=== PATIENT | female | born 1960 | race Caucasian/White ===

== ENCOUNTER 2023-11-25 23:09 | Emergency (ER) | payer OTHER, SELFPAY ==
[2023-11-25 23:16] VITALS: BP 136/82; PULSE 96; RESP 16; TEMP 36.6; O2SAT 99; BMI 25.8
--- NOTE | 2023-11-25 23:21 | ED.CHESTPAIN ---
HPI - Chest Pain General Time Seen by Provider: 23:21 Date Seen: 11/25/23 Chief Complaint: Hypertension Stated Complaint: high bp, irregular heartbeat Time Seen by Provider: 11/25/23 23:21 Source: patient, RN notes reviewed and old records reviewed Mode of arrival: ambulatory Limitations: no limitations History of Present Illness HPI narrative: Shelley is a very pleasant 63-year-old female with past history of intermittent palpitations, Holter monitor use who comes to the emergency room for evaluation regarding sustained rapid heart rate and elevated for a pressure of 160s over 1 teens. Lower states that she has had intermittent issues of feeling like her heart was out of rhythm since childhood. She notes that these episodes usually last 30 seconds and then they would go away. She had found that walking or sitting up in bed usually helped. She notes that often times when she lays on her left side it will set off the unusual rhythm but if she starts on the right side she feels sleepy and calmer she can then turned her left side. She notes the drinking water also seems to help. Tonight she notes that she had a rapid heart rate and elevated blood pressure lasting for approximately [address] minutes[address] And route to the hospital the seems to have resolved and she is feeling better here in the emergency room. She notes that tonight was different as it lasted for quite a bit longer. Shelley denies being ill recently. She has not had cough cold congestion. 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 She has used to carrying 50 lb bags of feed without difficulty. She is also an active golfer and walks. She does not smoke. Tonight she did have 3 alcoholic beverages as well as some very spicy food and desert. She states that she had apple pie for dessert and that the sugar make sleeping difficulty. She did take an Advil tonight. She is noted to eat very healthy with lots of vegetables especially magnesium containing vegetables. She occasionally takes multivitamin. Lower denies chest pain shortness of breath at this time. She has no nausea vomiting. She has not noticed any lower extremity edema. Blood pressure is 136 systolic upon presentation with a pulse of 96. Related Data Home Medications ?Medication ?Instructions ?Recorded ?Confirmed No Known Home Medications 11/25/23 11/25/23 Allergies Allergy/AdvReac Type Severity Reaction Status Date / Time Penicillins Allergy Unknown Verified 11/25/23 23:18 Review of Systems Status of ROS Reports: 10 or more systems reviewed and unremarkable except as noted in History and below Const Denies: fever, chills or fatigue Eyes Denies: change in vision ENMT Denies: nasal congestion Cardio Reports: palpitations and lightheadedness (Occasionally with dehydration); Denies: chest pain, swelling of feet/ankles or shortness of breath with exertion Resp Denies: shortness of breath or cough GI Denies: abdominal pain, nausea or vomiting Endo Denies: fatigue Exam Narrative Exam Narrative: Alert and oriented. Nontoxic in appearance. Very pleasant well-spoken woman in no acute distress. External ears eyes nose clear. Mentation and speech normal. Face symmetrical. Heart with regular rate and rhythm. I do not auscultate murmur or rub. Lungs are clear bilaterally. Lower extremities without edema. No calf tenderness. Moving all extremities. Const Vital Signs, click to edit/add: Vital Signs - 24 hr 11/25/23 23:16 11/25/23 23:52 Temperature 97.8 F Pulse Rate [Left Pulse Oximeter] 96 Respiratory Rate 16 Blood Pressure [Right Upper Arm] 136/82 147/84 H Pulse Oximetry 99 Oxygen Delivery Method Room Air Documenting provider has reviewed patient's vital signs: yes Course Course ED Course: At this time differential diagnosis is AFib, a flutter, SVT, other unusual rhythm, sinus tachycardia. I am wondering if maybe the 3 alcoholic drinks tonight contributed to robin's 20 minute episode of a rapid heart rate. I did state to Shelley that the elevated blood pressure does not concern me as much. I am concerned about the arrhythmia tonight. Leroy has been on Holter monitors in the past and they have never caught any thing while recording. EKG has been ordered. I would also like Shelley to drink some water. Vital Signs Vital signs: Initial Vital Signs Temperature 97.8 F 11/25/23 23:16 Temperature Source Temporal Artery Scan 11/25/23 23:16 Pulse Rate 96 11/25/23 23:16 Pulse Rhythm Regular 11/25/23 23:16 Respiratory Rate 16 11/25/23 23:16 Blood Pressure 136/82 11/25/23 23:16 Blood Pressure Mean 100 11/25/23 23:16 Blood Pressure Position Sitting 11/25/23 23:16 Pulse Oximetry 99 11/25/23 23:16 Oxygen Delivery Method Room Air 11/25/23 23:16 Vital Signs Temperature 97.8 F 11/25/23 23:16 Pulse Rate 96 11/25/23 23:16 Respiratory Rate 16 11/25/23 23:16 Blood Pressure 136/82 11/25/23 23:16 Pulse Oximetry 99 11/25/23 23:16 Oxygen Delivery Method Room Air 11/25/23 23:16 Temperature 97.8 F 11/25/23 23:16 Pulse Rate 96 11/25/23 23:16 Respiratory Rate 16 11/25/23 23:16 Blood Pressure 147/84 H 11/25/23 23:52 Pulse Oximetry 99 11/25/23 23:16 Oxygen Delivery Method Room Air 11/25/23 23:16 MDM - Chest Pain MDM Narrative Medical decision making narrative: 1. Rapid heart rate-patient is now in a sinus rhythm. She is feeling better. This is the 1st time something like this has lasted this long. She had no chest pain or shortness of breath. She did have some dizziness. At this time that has all resolved. She is given water at this time. Reassurance as well. Lower is in need of a ZIO patch for monitoring. I do not have need for laboratory values tonight given her history. I would like her to follow up with her primary MD to get the ZIO patch. I have asked her to also talk to her doctor about a possible echocardiogram. I would like Shelley to start on aspirin 81 mg daily until we are able to ascertain the rhythm that she has been experiencing. We did speak about magnesium supplements but sounds like she eats very healthy. We did talk about avoiding alcohol until we do ascertain what is going on. In addition staying well-hydrated is very important. 2. Disposition-home at this time. Patient feels comfortable with our plan to not draw labs. She does request recheck of her blood pressure which is 147 systolic. At this time I would not treat the blood pressure but continue to monitor. Shelley is to return to the ER for worsening symptoms especially sustain palpitations, chest pain, shortness of breath and as needed. Medical Records Data Attestation: I reviewed the patient's medical records. ECG Data Attestation: I personally reviewed and interpreted this ECG as follows: ECG interpretation date: 11/26/23 Interpretation: EKG by my read shows sinus rhythm at a rate of 91. I do not note any acute ST or T-wave changes. QT and ND intervals within normal limits. Patient does not have any EKGs for visualization but I did find report of her previous EKG in a dictation. At that time there was a right bundle-branch block. Tonight patient has a left anterior fascicular block. But again do not see any acute findings. Discharge Plan Discharge Clinical Impression: Arrhythmia Qualifiers: Arrhythmia type: unspecified cardiac arrhythmia Qualified Code(s): I49.9 - Cardiac arrhythmia, unspecified Patient Disposition: Home, Self-Care Condition: Improved Additional Instructions: At this time your heart rate is back in a regular rhythm. Your blood pressure is reassuring. However, given your history I would recommend for things: 1. Please contact your primary clinic to see if they could order a ZIO patch to monitor your heart rate. My recommendation is to do this for 2 weeks. 2. Have your primary consider ordering an echocardiogram or ultrasound of the heart. 3. Start taking a baby aspirin 81 mg daily. 4. Stay well hydrated and avoid alcohol during this time of evaluation. Please return to the emergency room for further evaluation as needed. Prescriptions: No Action No Known Home Medications Stand Alone Forms: [employer] Info Instructions
[2023-11-25 23:52] VITALS: BP 147/84
== END 2023-11-26 00:01 | disposition home or self-care (01) ==
LOC: ED 11-26
PROVIDERS: Emergency Provider Family Medicine; PCP Family Medicine
DX: I49.9 Cardiac arrhythmia, unspecified (principal)
CPT/HCPCS: 99284